=== PATIENT | female | born 1995 | race Hispanic/Latino ===

== ENCOUNTER 2018-03-14 13:55 | Emergency (ER) | payer OTHER ==
[~2018-03-14] VITALS: Ht 170.2 cm; Wt 59.0 kg
[2018-03-14] MEDS ORDERED: SODIUM CHLORIDE 0.9% 1000ML 1,000 ML IV SCH (14:30)
[2018-03-14 15:29] VITALS: BP 111/65
--- NOTE | 2018-03-14 15:39 | Diagnostic Imaging Report ---
Examination: CT head without contrast Clinical Indication: Headache and dizziness. Technique: Transaxial noncontrast images from the skull base through the vertex were obtained. Sagittal and coronal reformatted images were done. Dose modulation, iterative reconstruction, and/or weight based adjustment of the mA/kV was utilized to reduce the radiation dose to as low as reasonably achievable. Comparison: None. Findings: Scalp: No abnormalities. Bones: Intact. No fractures. No blastic or lytic lesions. Brain sulci: Appropriate for patient's age. Ventricles: Normal in size and configuration. No hydrocephalus. Extra-axial space: No abnormalities. Parenchyma: No abnormal densities. No masses, hemorrhage, or acute or chronic cortical based vascular insults. Suprasellar region: No abnormalities. Craniocervical junction: The foramen magnum is patent. No Chiari one malformation. Impression: No intracranial abnormality. Signed by: Dr. Janie Escobar M.D. on 03/14/2018 3:35 PM
[2018-03-14] MEDS ORDERED: MECLIZINE HCL 12.5 MG TAB PO ONE (16:00)
== END 2018-03-14 17:04 | disposition home or self-care (01) ==
LOC: FSED 13:55
DX: R42 Dizziness and giddiness (principal); R11.0 Nausea; T88.7XXA Unspecified adverse effect of drug or medicament, initial encounter
CPT/HCPCS: 70450; 80307; 81003; 81025; 93005; 99284